=== PATIENT | female | born 2000 | race Asian ===

== ENCOUNTER 2024-03-19 08:40 | Outpatient (REF) | payer OTHER, SELFPAY ==
--- NOTE | ~2024-03-19 | US_ITS ---
EXAMINATION: US PELVIS CLINICAL INFORMATION: Irregular menses. COMPARISON: None available. TECHNIQUE: Ultrasound of the pelvis is performed using both transabdominal and transvaginal transducers along with Doppler. Transvaginal imaging is performed due to inadequate visualization transabdominally. FINDINGS: Uterus: The uterus is anteverted and measures 6.3 x 2.7 x 4.4 cm. No discrete uterine mass. The double wall endometrial thickness is 3 mm. The uterus is smooth in contour and has normal myometrial echogenicity. No visible fibroid. Adnexa: The right ovary measures 3.7 x 1.2 x 2.2 cm, volume 3.4 mL. The right ovary appears normal. The left ovary measures 3.0 x 1.5 x 1.6 cm, volume 6.3 mL. The left ovary appears normal. No free fluid. US/US pelvic and transvaginal IMPRESSION: Normal pelvic ultrasound.
== END 2024-03-19 08:41 | disposition home or self-care (01) ==
LOC: HO.UMASIMG 08:40
PROVIDERS: Visit Provider Nurse Practitioner Women's Health
DX: N92.6 Irregular menstruation, unspecified (principal); N94.6 Dysmenorrhea, unspecified
CPT/HCPCS: 76830; 76856